=== PATIENT | male | born 1950 | race Caucasian/White ===

== ENCOUNTER 2018-01-18 11:50 | Emergency (ER) | payer BC ==
[2018-01-18 12:57] VITALS: BP 126/77
--- NOTE | 2018-01-18 13:09 | UC ---
Skin Complaint HPI - HPI Summary HPI Summary: insect bite to top of left foot 3 days ago, did not see a tick but is concerned it could have been - History of Current Complaint Chief Complaint: UCGeneralIllness Time Seen by Provider: 01/18/18 12:50 Stated Complaint: TICK BITE Hx Obtained From: Patient Onset/Duration: Sudden Onset, Resolved Skin Exposure Onset/Duration: Days Ago - 3 Pain Intensity: 0 Pain Scale Used: 0-10 Numeric Location: Discrete - top of left foot Aggravating Factor(s): Nothing Alleviating Factor(s): Nothing Associated Signs & Symptoms: Positive: Negative Related History: Possible Reaction to: Insect - Allergy/Home Medications Allergies/Adverse Reactions: Allergies Allergy/AdvReac Type Severity Reaction Status Date / Time No Known Allergies Allergy Verified 01/18/18 12:53 Home Medications: Home Medications Lovastatin [Altoprev] 40 mg PO DAILY 01/18/18 [History Confirmed 01/18/18] Vilazodone (NF) [Viibryd (NF)] 40 mg PO DAILY 01/18/18 [History Confirmed ] Review of Systems Constitutional: Negative Skin: Other - top of left foot small insect bite Eyes: Negative ENT: Negative Respiratory: Negative Cardiovascular: Negative Gastrointestinal: Negative Genitourinary: Negative Motor: Negative Neurovascular: Negative Musculoskeletal: Negative Neurological: Negative Psychological: Negative Is Patient Immunocompromised?: No All Other Systems Reviewed And Are Negative: Yes PMH/Surg Hx/FS Hx/Imm Hx Previously Healthy: Yes - Surgical History Surgical History: Yes Surgery Procedure, Year, and Place: R SHOULDER RCT 2008,SKIN GRAPH LOWER RIGHT ANKLE 30 YRS AGO,TONSILS AGE 8, achilles tendon repair - Family History Known Family History: Positive: None - Social History Occupation: Employed Full-time Lives: With Family Alcohol Use: Weekly Substance Use Type: None Smoking Status (MU): Former Smoker Type: Cigarettes When Did the Patient Quit Smoking/Using Tobacco: 1999 Physical Exam Triage Information Reviewed: Yes Appearance: Well-Appearing, No Pain Distress, Well-Nourished Vital Signs: Initial Vital Signs Temp 98.6 F 01/18/18 12:49 Pulse 68 01/18/18 12:49 Resp 16 01/18/18 12:49 BP 126/77 01/18/18 12:49 Pulse Ox 96 01/18/18 12:49 Vital Signs Reviewed: Yes Eye Exam: Normal Eyes: Positive: Conjunctiva Clear ENT Exam: Normal ENT: Positive: Normal ENT inspection, Hearing grossly normal. Negative: TMs normal, Tonsillar swelling, Tonsillar exudate, Muffled voice, Hoarse voice, Dental tenderness Dental Exam: Normal Neck exam: Normal Neck: Positive: Supple, Nontender Respiratory Exam: Normal Respiratory: Positive: Chest non-tender, No respiratory distress, No accessory muscle use Cardiovascular Exam: Normal Cardiovascular: Positive: RRR, No Murmur, Pulses Normal, Brisk Capillary Refill Musculoskeletal Exam: Normal Musculoskeletal: Positive: Strength Intact, ROM Intact, No Edema Neurological Exam: Normal Neurological: Positive: Alert, Muscle Tone Normal Psychological Exam: Normal Psychological: Positive: Normal Response To Family Skin Exam: Other Skin: Positive: Other - 3 mm erythema a top of left foot Course/Dx - Course Course Of Treatment: education provided for tick removal, and PEP, as well as LYme disease, return or follow with pcp for any concerns - Diagnoses Provider Diagnoses: tick exposure Discharge - Sign-Out/Discharge Documenting (check all that apply): Discharge/Admit/Transfer - Discharge Plan Condition: Stable Disposition: HOME Patient Education Materials: Lyme Disease (ED), Tick Bite (ED) Referrals: Ray Arce MD [Primary Care Provider] - If Needed - Billing Disposition and Condition Condition: STABLE Disposition: HOME
== END 2018-01-18 13:22 | disposition home or self-care (01) ==
LOC: UCCORT 11:50
DX: S90.862A Insect bite (nonvenomous), left foot, initial encounter (principal); W57.XXXA Bitten or stung by nonvenomous insect and other nonvenomous arthropods, initial encounter; Y93.9 Activity, unspecified; Y92.9 Unspecified place or not applicable; Z87.891 Personal history of nicotine dependence
CPT/HCPCS: 99201; G0463

== ENCOUNTER 2018-12-05 09:14 | Emergency (ER) | payer BC ==
[2018-12-05 10:13] VITALS: BP 113/44
--- NOTE | 2018-12-05 10:25 | UC ---
Ear Complaint HPI - HPI Summary HPI Summary: 68-year-old male presents with complaints of 6 days of right ear fullness and decreased hearing. States approximately a week ago he did have some URI symptoms including nasal congestion, runny nose, and dry nonproductive cough over the symptoms have all resolved. Has history of cerumen impaction. He has been trying to use [id number] ceruminolytics without resolution in symptoms. Denies fever, chills, ear pain, ear drainage, tinnitus, or vertigo. - History of Current Complaint Chief Complaint: UCEar Stated Complaint: PLUGGED RT EAR Time Seen by Provider: 12/05/18 10:15 Hx Obtained From: Patient Pain Intensity: 1 - Allergies/Home Medications Allergies/Adverse Reactions: Allergies Allergy/AdvReac Type Severity Reaction Status Date / Time No Known Allergies Allergy Verified 12/05/18 10:08 Home Medications: Home Medications Levothyroxine TAB* [Synthroid TAB*] 125 mcg PO DAILY 12/05/18 [History Confirmed 12/05/18] PMH/Surg Hx/FS Hx/Imm Hx Previously Healthy: Yes Endocrine History: Hypothyroidism, Dyslipidemia Psychological History: Depression - Surgical History Surgical History: Yes Surgery Procedure, Year, and Place: R SHOULDER RCT 2009,SKIN GRAPH LOWER RIGHT ANKLE 30 YRS AGO,TONSILS AGE 8, achilles tendon repair. 10/07/18 RIGHT ROTATOR CUFF - Family History Known Family History: Positive: Non-Contributory - Social History Occupation: Employed Full-time Lives: With Family Alcohol Use: Occasionally Substance Use Type: None Smoking Status (MU): Former Smoker Type: Cigarettes When Did the Patient Quit Smoking/Using Tobacco: 1999 Review of Systems All Other Systems Reviewed And Are Negative: Yes Constitutional: Negative: Fever, Chills Eyes: Negative: Drainage, Eye Redness ENT: Positive: Other - See HPI. Negative: Sore Throat, Ear Ache, Nasal Discharge, Sinus Congestion, Sinus Pain/Tenderness Respiratory: Negative: Shortness Of Breath, Cough Cardiovascular: Negative: Palpitations, Chest Pain Gastrointestinal: Positive: Negative Genitourinary: Positive: Negative Musculoskeletal: Positive: Negative Neurological: Positive: Negative Is Patient Immunocompromised?: No Physical Exam - Summary Physical Exam Summary: GENERAL APPEARANCE: Well developed, well nourished, alert and cooperative, and appears to be in no acute distress. EYES: Conjunctiva clear. No drainage. EARS: Left external auditory canals and tympanic membranes clear. Right external auditory canal with cerumen impaction. NOSE: No nasal discharge. THROAT: Pharynx normal. No tonsilar inflammation, swelling, exudate, or lesions. Uvula midline. Oral cavity normal. Teeth and gingiva in good general condition. NECK: Neck supple, non-tender without lymphadenopathy. CARDIAC: Normal S1 and S2. No S3, S4 or murmurs. Rhythm is regular. There is no peripheral edema, cyanosis or pallor. Extremities are warm and well perfused. Capillary refill is less than 2 seconds. Peripheral pulses intact. LUNGS: Clear to auscultation without rales, rhonchi, wheezing or diminished breath sounds. ABDOMEN: Positive bowel sounds. Soft, nondistended, nontender. No guarding or rebound. No masses or hepatosplenomegally. MUSKULOSKELETAL: ROM intact to all extremities. No joint erythema or tenderness. Normal muscular development. Normal gait. SKIN: Skin normal color, texture and turgor with no lesions or eruptions. Triage Information Reviewed: Yes Vital Signs: Initial Vital Signs Temp 97.9 F 12/05/18 10:09 Pulse 70 12/05/18 10:09 Resp 16 12/05/18 10:09 BP 113/44 12/05/18 10:09 Pulse Ox 98 12/05/18 10:09 Vital Signs Reviewed: Yes Re-Evaluation - Re-Evaluation First Eval Re-Evaluation Time: 10:25 Change: Improved Comment: Post irrigation patient report improved hearing. Right external canal clear with intact, opaque TM with good cone of light. Ear Complaint Course/Dx - Course Course Of Treatment: 68-year-old male presents with complaints of 6 days of right ear fullness and decreased hearing. States approximately a week ago he did have some URI symptoms including nasal congestion, runny nose, and dry nonproductive cough over the symptoms have all resolved. Has history of cerumen impaction. He has been trying to use [id number] ceruminolytics without resolution in symptoms. Denies fever, chills, ear pain, ear drainage, tinnitus, or vertigo. Afebrile. Vital signs stable. Exam remarkable for a cerumen impaction of the right ear. The ear was irrigated by the RN and a large amount of soft cerumen was removed. Post irrigation exam revealed a clear right external auditory canal and an intact, opaque TM with good cone of light. He is to follow-up with his primary care provider as needed. - Differential Dx/Diagnosis Differential Diagnosis/HQI/PQRI: Cerumen Impaction, Otitis Externa, Otitis Media Provider Diagnosis: Right ear impacted cerumen Discharge - Sign-Out/Discharge Documenting (check all that apply): Patient Departure All imaging exams completed and their final reports reviewed: No Studies - Discharge Plan Condition: Stable Disposition: HOME Patient Education Materials: Cerumen Impaction (ED) Referrals: Ray Arce MD [Primary Care Provider] - If Needed - Billing Disposition and Condition Condition: STABLE Disposition: Home - Attestation Statements Provider Attestation: Per institutional requirements, I have reviewed the chart, however, I was not consulted specifically or made aware of this patient by the midlevel provider. I did not personally evaluate, interact with , or disposition this patient.
== END 2018-12-05 10:29 | disposition home or self-care (01) ==
LOC: UCCORT 09:14
DX: H61.21 Impacted cerumen, right ear (principal); E03.9 Hypothyroidism, unspecified; E78.5 Hyperlipidemia, unspecified; F32.9 Major depressive disorder, single episode, unspecified; Z87.891 Personal history of nicotine dependence
CPT/HCPCS: 99212; G0463